=== PATIENT | male | born 1980 | race Caucasian/White ===

== ENCOUNTER 2019-04-22 17:43 | Emergency (ER) | payer OTHER ==
[~2019-04-22] VITALS: Ht 172.7 cm; Wt 63.5 kg
[2019-04-22 17:48] VITALS: BP_SYST 139
[2019-04-22] MEDS ORDERED: MORPHINE 4 MG/ML INJ. SYRINGE IVP ONE ×2 (18:30→20:15)
[2019-04-22] MEDS ORDERED: ONDANSETRON HCL 4 MG/2 ML VIAL IVP ONE (18:30)
[2019-04-22 18:44] LABS: BASOPHILS % (AUTO) 0.5 % (0.0-2.0); EOSINOPHILS # (AUTO) 0.2 K/uL (0.0-0.4); EOSINOPHILS % (AUTO) 2.3 % (0.0-4.0); HEMATOCRIT 43.4 % (36-54); HEMOGLOBIN 14.5 g/dL (14.0-18.0); LYMPHOCYTES # (AUTO) 2.8 K/uL (1.0-5.5); LYMPHOCYTES % (AUTO) 35.4 % (20.5-51.5); MEAN CORPUSCULAR HEMOGLOBIN 31 pg (27-31); MEAN CORPUSCULAR HGB CONC 34 % (32-36); MEAN CORPUSCULAR VOLUME 92 fL (79.0-98.0); MONOCYTES # (AUTO) 0.6 K/uL (0.0-1.0); NEUTROPHILS # (AUTO) 4.4 K/uL (1.8-7.7); NEUTROPHILS % (AUTO) 54.8 % (40.0-70.0); PLATELET COUNT (AUTO) 212 K/uL (130-430); RED BLOOD CELL COUNT(AUTO) 4.73 MIL/uL (4.2-6.2); RED CELL DISTRIBUTION WIDTH 12.2 % (9.0-15.0)
[2019-04-22 18:49] LABS: CALCIUM 9.7 mg/dL (8.4-11.0); CREATININE 0.74 mg/dL (0.55-1.30); POTASSIUM 3.9 mmol/L (3.5-5.1)
[2019-04-22 18:53] LABS: PROTHROMBIN TIME 10.2 SECS (9.5-12.5)
[2019-04-22 18:54] LABS: ALBUMIN 4.2 g/dL (3.4-4.8); TOTAL BILIRUBIN 0.4 mg/dL (0.0-1.0)
[2019-04-22] MEDS ORDERED: IOHEXOL 100 ML IV ONE (19:17)
[2019-04-22] MEDS ORDERED: LORazepam 2 MG/ML VIAL (FOR ER USE) IVP ONE (19:30)
[2019-04-22 20:29] VITALS: BP_SYST 149
== END 2019-04-22 20:29 | disposition short-term general hospital (02) ==
LOC: SED 17:43
DX: S15.0 Injury of carotid artery of neck (principal); I65.01 Occlusion and stenosis of right vertebral artery; Z88.0 Allergy status to penicillin; W01.198A Fall on same level from slipping, tripping and stumbling with subsequent striking against other object, initial encounter; Y93.01 Activity, walking, marching and hiking; Y92.89 Other specified places as the place of occurrence of the external cause; Y99.8 Other external cause status
CPT/HCPCS: 36415; 70498; 80053; 85025; 85610; 85730; 96374; 96375; 96376; 99285; J2060; J2270; J2405; Q9967

== ENCOUNTER 2022-10-11 16:42 | Emergency (ER) | payer OTHER ==
[~2022-10-11] VITALS: Ht 172.7 cm; Wt 59.0 kg
[2022-10-11 16:42] VITALS: BP_SYST 151
--- NOTE | 2022-10-11 16:50 | NUR ---
Patient triaged and placed in waiting room. VSS and patient appears in no acute distress at this time. Accompanied by SELF, awaiting available bed, and MD notified of need for MSE.
[2022-10-11] MEDS ORDERED: TETRACAINE HCL/PF 0.5% OPHTHALMIC DROPS 4 ML OP ONE (17:00)
--- NOTE | 2022-10-11 17:10 | NUR ---
DR REEVES TO TRIAGE ROOM TO EVALUATE
[2022-10-11] MEDS ORDERED: FLOEARD EACH EYE (17:14)
--- NOTE | 2022-10-11 17:15 | NUR ---
Patient given written and verbal discharge instructions and verbalizes understanding. ER MD discussed with patient the results and treatment provided. Patient in stable condition. ID arm band removed. Rx of OFLOXACIN given. Patient educated on pain management and to follow up with PMD. Pain Scale 0/10. Opportunity for questions provided and answered. Medication side effect fact sheet provided.
== END 2022-10-11 17:15 | disposition home or self-care (01) ==
LOC: SED 16:42
DX: S05.01XA Injury of conjunctiva and corneal abrasion without foreign body, right eye, initial encounter (principal); I10 Essential (primary) hypertension; Z88.0 Allergy status to penicillin; Z79.899 Other long term (current) drug therapy; X58.XXXA Exposure to other specified factors, initial encounter; Y93.89 Activity, other specified; Y92.89 Other specified places as the place of occurrence of the external cause; Y99.8 Other external cause status
CPT/HCPCS: 99283